=== PATIENT | female | born 1970 | race Caucasian/White ===

== ENCOUNTER → 2017-12-05 | Outpatient (CLI) | payer MEDICAID ==
[2017-12-05 08:35] LABS: T4, Free (Free Thyroxine) 1.31 ng/dL (0.78-2.19)
== END | disposition home or self-care (01) ==
LOC: LABWHC1 07:40
PROVIDERS: ATTEND Internal Medicine Endocrinology, Diabetes & Metabolism
DX: E89.0 Postprocedural hypothyroidism (principal)
CPT/HCPCS: 36415; 84439; 84443

== ENCOUNTER → 2018-02-12 | Outpatient (CLI) | payer MEDICAID ==
--- NOTE | 2018-02-12 09:58 | US ---
EXAMINATION TYPE: US carotid duplex BILAT DATE OF EXAM: 02/12/2018 COMPARISON: NONE CLINICAL HISTORY: R07.9 chest pain, R09.89 Carotid Bruit. EXAM MEASUREMENTS: RIGHT: Peak Systolic Velocity (PSV) cm/sec ----- Right CCA: 72.6 ----- Right ICA: 71.3 ----- Right ECA: 55.2 ICA/CCA ratio: 1.0 RIGHT: End Diastole cm/sec ----- Right CCA: 26.0 ----- Right ICA: 32.0 ----- Right ECA: 8.1 LEFT: Peak Systolic Velocity (PSV) cm/sec ----- Left CCA: 71.1 ----- Left ICA: 63.6 ----- Left ECA: 73.5 ICA/CCA ratio: 0.9 LEFT: End Diastole cm/sec ----- Left CCA: 30.9 ----- Left ICA: 34.0 ----- Left ECA: 9.8 VERTEBRALS (direction of flow): Right Vertebral: Antegrade Left Vertebral: Antegrade Rhythm: Normal No evident atherosclerotic changes, no elevated velocities. IMPRESSION: No evident atherosclerotic changes, no elevated velocities. Criteria for Assigning % of Stenosis / Diameter reduction (Estimation based on the indirect measurements of the internal carotid artery velocities (ICA PSV). 1. Normal (no stenosis)=ICA PSV < 125 cm/s: ratio < 2.0: ICA EDV<40 cm/s. 2. Less than 50% stenosis=ICA PSV < 125 cm/s: ratio < 2.0: ICA EDV<40 cm/s. 3. 50 to 69% stenosis=ICA PSV of 125 to 230 cm/s: ration 2.0 ? 4.0: ICA EDV 40-100 cm/s. 4. Greater than 70% stenosis to near occlusion= ICA PSV > 230 cm/s: ratio > 4.0: ICA EDV > 100 cm/s. 5. Near occlusion= ICA PSV velocities may be low or undetectable: variable ratio and ICA EDV. 6. Total occlusion=unable to detect flow.
--- NOTE | 2018-02-12 11:27 | ECHOF ---
Referral Reason:R07.9 chest pain, R09.89 Carotid Bruit MEASUREMENTS -------- HEIGHT: 167.6 cm WEIGHT: 79.4 kg BP: IVSd: 1.1 cm (0.6 - 1.1) LVIDd: 3.8 cm (3.9 - 5.3) LVPWd: 1.1 cm (0.6 - 1.1) IVSs: 1.3 cm LVIDs: 2.4 cm LVPWs: 1.6 cm Ao Diam: 2.6 cm (2.0 - 3.7) AV Cusp: 1.9 cm (1.5 - 2.6) LA Diam: 3.1 cm (2.7 - 3.8) MV EXCURSION: 13.970 mm (> 18.000) MV EF SLOPE: 64 mm/s (70 - 150) EPSS: 0.5 cm MV E Wilber: 1.19 m/s MV DecT: 127 ms MV A Wilber: 1.27 m/s MV E/A Ratio: 0.94 RAP: 5.00 mmHg RVSP: 10.02 mmHg FINDINGS -------- Sinus rhythm. This was a technically good study. The left ventricular size is normal. Left ventricular wall thickness is normal. Overall left vent ricular systolic function is normal with, an EF between 55 - 60 %. The right ventricle is normal in size and function. The left atrium is normal in size. The right atrium is normal in size. The aortic valve is trileaflet, and appears structurally normal. No aortic stenosis or regurgitation. Mild mitral regurgitation is present. Mild tricuspid regurgitation present. The right ventricular systolic pressure, as measured by Doppl er, is 10.02mmHg. Pulmonic valve appears structurally normal. The aortic root size is normal. Normal inferior vena cava with normal inspiratory collapse consistent with estimated right atrial pre ssure of 5 mmHg. The pericardium is normal. CONCLUSIONS -------- 1. Sinus rhythm. 2. This was a technically good study. 3. The left ventricular size is normal. 4. Left ventricular wall thickness is normal. 5. Overall left ventricular systolic function is normal with, an EF between 55 - 60 %. 6. The right ventricle is normal in size and function. 7. The left atrium is normal in size. 8. The right atrium is normal in size. 9. The aortic valve is trileaflet, and appears structurally normal. No aortic stenosis or regurgitati on. 10. Mild mitral regurgitation is present. 11. Mild tricuspid regurgitation present. 12. The right ventricular systolic pressure, as measured by Doppler, is 10.02mmHg. 13. Pulmonic valve appears structurally normal. 14. The aortic root size is normal. 15. Normal inferior vena cava with normal inspiratory collapse consistent with estimated right atrial pressure of 5 mmHg. 16. The pericardium is normal. STONECUTTER: Mildred Salcedo RDCS
--- NOTE | 2018-02-12 14:11 | ECHOS ---
STRESS ECHOCARDIOGRAM INDICATIONS: Chest pain. MEDICATIONS: , aspirin. BASELINE HEART RATE: 72 BASELINE BLOOD PRESSURE: 125/82 MAXIMUM HEART RATE: 149 MAXIMUM BLOOD PRESSURE: 169/77 85% MPHR: 145 100% MPHR: 171 METS: 11.5 MAXIMUM STAGE REACHED: 4 TOTAL EXERCISE TIME: 10:00 CLINICAL INFORMATION: STRESS DATA: Pretesting physical examination showed a heart rate of 72, pressure is 125/82 mmHg. Baseline EKG showed sinus mechanism. There was poor R-wave progression. The patient exercised on the treadmill according to David protocol for a total of 10 minutes and achieved 11.5 METS. Max heart rate was 149, which is about 87% of maximum predicted heart rate. Maximum blood pressure was 169/77 mmHg. Clinically, patient did not have any symptoms of chest pain or discomfort during the testing or in the recovery time. The EKG did not show any significant ST or T-wave abnormalities concerning for ischemia. ECHOCARDIOGRAM IMAGES: On echocardiogram images from parasternal long axis view, parasternal short axis view, apical 4 chambers and apical 2 chamber view were obtained as the baseline images, at peak heart rate as well as on recovery. The echocardiogram images showed good augmentation in the left ventricular systolic function without any evidence of wall motion abnormalities consistent with ischemia. CONCLUSION: 1. Excellent exercise capacity. 2. Normal EKG in response to exercise. 3. Normal echocardiogram in response to exercise. 4. Essentially normal stress echocardiogram. MMODL / IJN: [id number] /
== END ==
LOC: RADUSMAIN 08:59
PROVIDERS: ATTEND Internal Medicine Interventional Cardiology
DX: R09.89 Other specified symptoms and signs involving the circulatory and respiratory systems (principal); R07.9 Chest pain, unspecified
CPT/HCPCS: 93306; 93351; 93880

== ENCOUNTER → 2018-02-13 | Outpatient (CLI) | payer MEDICAID ==
[2018-02-13 10:34] LABS: ALT 21 U/L (9-52); AST 22 U/L (14-36); Albumin 4.5 g/dL (3.5-5.0); Alkaline Phosphatase 69 U/L (38-126); Anion Gap 12 mmol/L; Blood Urea Nitrogen 16 mg/dL (7-17); Calcium 9.7 mg/dL (8.4-10.2); Carbon Dioxide 25 mmol/L (22-30); Chloride 104 mmol/L (98-107); Cholesterol 178 mg/dL (<200); Glucose 95 mg/dL (74-99); HDL Cholesterol 75 mg/dL (40-60); LDL Cholesterol,Calculated 90 mg/dL (0-99); Sodium 141 mmol/L (137-145); Total Bilirubin 0.6 mg/dL (0.2-1.3); Total Protein 7.2 g/dL (6.3-8.2); Triglycerides 65 mg/dL (<150)
== END | disposition home or self-care (01) ==
LOC: LABWHC1 08:31
PROVIDERS: ATTEND Internal Medicine Endocrinology, Diabetes & Metabolism
DX: E89.0 Postprocedural hypothyroidism (principal); R07.9 Chest pain, unspecified
CPT/HCPCS: 36415; 80053; 80061; 84439; 84443; 84481

== ENCOUNTER → 2018-02-18 | Outpatient (CLI) | payer MEDICAID | END | disposition home or self-care (01) | LOC: LABWHC1 07:58 | PROVIDERS: ATTEND Internal Medicine Interventional Cardiology | DX: E87.6 Hypokalemia (principal) | CPT/HCPCS: 36415; 84132 ==

== ENCOUNTER → 2018-02-27 | Outpatient (CLI) | payer MEDICAID ==
[2018-02-27 09:31] LABS: HCT 43.3 % (34.0-46.0); MCH 29.3 pg (25.0-35.0); MCHC 32.4 g/dL (31.0-37.0); MCV 90.5 fL (80.0-100.0); Platelet Count 208 k/uL (150-450); RBC 4.79 m/uL (3.80-5.40); RDW 13.6 % (11.5-15.5); WBC 5.6 k/uL (3.8-10.6)
[2018-02-27 12:57] LABS: Erythrocyte Sedimentation Rate 4 mm/hr (0-20)
[2018-02-27 17:04] LABS: Rheumatoid Factor 7 IU/mL (0-15)
[2018-02-27 17:11] LABS: Vitamin D 25 Hydroxy 25.1 ng/mL (30.0-100.0)
[2018-02-27 18:24] LABS: Cyclic Citrullinated Pep IgG NEGATIVE (NEGATIVE); Gliadin AB IgA, Unit <0.2 U/mL
[2018-03-02 09:32] LABS: ANA Pattern Speckled; ANA Pattern 2 Nucleolar
[2018-03-02 09:59] LABS: Lyme IgG/IgM 0.1 Index
== END ==
LOC: LABWHC1 09:00
PROVIDERS: ATTEND Internal Medicine Endocrinology, Diabetes & Metabolism
DX: E55.9 Vitamin D deficiency, unspecified (principal); E89.0 Postprocedural hypothyroidism; K90.0 Celiac disease; D51.8 Other vitamin B12 deficiency anemias
CPT/HCPCS: 36415; 82306; 82607; 82728; 83516; 83540; 83550; 85027; 85652; 86038; 86039; 86200; 86431; 86618

== ENCOUNTER → 2018-04-10 | Outpatient (CLI) | payer MEDICAID ==
[2018-04-10 09:32] LABS: T4, Free (Free Thyroxine) 1.22 ng/dL (0.78-2.19)
== END | disposition home or self-care (01) ==
LOC: LABWHC1 08:23
PROVIDERS: ATTEND Internal Medicine Endocrinology, Diabetes & Metabolism
DX: E55.9 Vitamin D deficiency, unspecified (principal); D51.8 Other vitamin B12 deficiency anemias; K90.0 Celiac disease; E89.0 Postprocedural hypothyroidism
CPT/HCPCS: 36415; 84439; 84443; 84481

== ENCOUNTER → 2018-07-03 | Outpatient (CLI) | payer MEDICAID ==
[2018-07-03 10:20] LABS: T4, Free (Free Thyroxine) 1.16 ng/dL (0.78-2.19)
== END | disposition home or self-care (01) ==
LOC: LABWHC1 08:54
PROVIDERS: ATTEND Internal Medicine Endocrinology, Diabetes & Metabolism
DX: D51.8 Other vitamin B12 deficiency anemias (principal); E55.9 Vitamin D deficiency, unspecified; E89.1 Postprocedural hypoinsulinemia; K90.0 Celiac disease
CPT/HCPCS: 36415; 84439; 84443

== ENCOUNTER → 2019-03-03 | Outpatient (CLI) | payer MEDICAID ==
[2019-03-03 17:27] LABS: T4, Free (Free Thyroxine) 1.3 ng/dL (0.80-1.80)
== END | disposition home or self-care (01) ==
LOC: LABWHC1 07:59
PROVIDERS: ATTEND Internal Medicine Endocrinology, Diabetes & Metabolism
DX: E89.0 Postprocedural hypothyroidism (principal)
CPT/HCPCS: 36415; 82306; 84439; 84443; 84481

== ENCOUNTER → 2019-08-06 | Outpatient (CLI) | payer MEDICAID ==
[2019-08-06 08:49] LABS: HCT 42.9 % (34.0-46.0); HGB 13.9 gm/dL (11.4-16.0); MCH 29.4 pg (25.0-35.0); MCHC 32.4 g/dL (31.0-37.0); MCV 90.7 fL (80.0-100.0); Mean Platelet Volume 6.2; Platelet Count 207 k/uL (150-450); RBC 4.73 m/uL (3.80-5.40); RDW 13.2 % (11.5-15.5); WBC 6.6 k/uL (3.8-10.6)
[2019-08-06 18:17] LABS: African American GFR (CKD) 117.1 (60.0-200.0); Anion Gap 8.8 mmol/L (4.00-12.00); BUN/Creat Ratio 21.43 Ratio (12.00-20.00); Calcium 9.2 mg/dL (8.7-10.3); Carbon Dioxide 27.2 mmol/L (21.6-31.8); Chol/HDL Ratio 2.41; Potassium 4.6 mmol/L (3.5-5.5)
[2019-08-06 18:33] LABS: T4, Free (Free Thyroxine) 1.2 ng/dL (0.80-1.80)
== END ==
LOC: LABWHC1 08:10
PROVIDERS: ATTEND Internal Medicine Cardiovascular Disease
DX: R07.89 Other chest pain (principal); R00.2 Palpitations
CPT/HCPCS: 36415; 80048; 80061; 84439; 84443; 84481; 85027